=== PATIENT | male | born 1975 | race Caucasian/White ===

== ENCOUNTER 2019-10-11 21:00 | Emergency (ER) | payer SELFPAY ==
[~2019-10-11] VITALS: Ht 182.9 cm; Wt 99.7 kg
[~2019-10-11 21:00] MED LIST: DICL500C PO
[2019-10-11 21:15] VITALS: BP 147/94
[2019-10-11] MEDS ORDERED: PRED10TA22 (21:21)
[2019-10-11] MEDS ORDERED: diphenhydrAMINE 25 MG TAB (BENADRYL) PO ONE (21:30)
[2019-10-11] MEDS ORDERED: FAMOTIDINE 20 MG (PEPCID) TABLET PO ONE (21:30)
--- NOTE | 2019-10-11 21:40 | ED Integumentary General ---
General Chief Complaint: Allergic Reaction Stated Complaint: ALLERGIC REACTION Nursing Triage Note: itching/hives, feet swelling. History of Present Illness Date Seen by Provider: Oct 11, 2019 Time Seen by Provider: 21:20 Initial Comments 44 year old male presents for rash that started 2 days ago. He received a steroid shot 10/09/19 and is taking Oral Prednisone but continuing to have pruritus. No dyspnea, fever, tongue or lip swelling. He has tried Benadryl Cream with no relief. Timing/Duration: getting worse Modifying Factors: improves with scratching Associated Symptoms: change in skin texture, hives, rash Allergies and Home Medications Allergies Coded Allergies: No Known Drug Allergies (Unverified , 01/03/11) Home Medications Dicloxacillin Sodium 500 Mg Capsule, 1 EACH PO QID, (Reported) Patient Home Medication List Home Medication List Reviewed: Yes Review of Systems Review of Systems Constitutional: no symptoms reported, see HPI Skin: see HPI, rash All Other Systems Reviewed Negative Unless Noted: Yes Past [id number]-Idocbo-[id number] Hx Past Med/Social Hx: Reviewed Nursing Past Med/Soc Hx Patient Social History Alcohol Use: Occasionally Uses Recreational Drug Use: No Smoking Status: Never a Smoker Type Used: Smokeless Tobacco 2nd Hand Smoke Exposure: No Recent Foreign Travel: No Contact w/Someone Who Travel: No Recent Infectious Disease Expo: No Recent Hopitalizations: No Physical Abuse: No Sexual Abuse: No Mistreated: No Fear: No Immunizations Up To Date Tetanus Booster (TDap): Unknown Seasonal Allergies Seasonal Allergies: No Past Medical History Surgeries: Yes (INGUINAL HERNIA REPAIR, DEVIATED SEPTUM REPAIR) Appendectomy Respiratory: No Cardiac: No Neurological: No Reproductive Disorders: No Genitourinary: No Gastrointestinal: No Musculoskeletal: No Endocrine: No HEENT: No Cancer: No Psychosocial: No Integumentary: Yes Recent Skin Changes Blood Disorders: No Physical Exam Vital Signs Vital Signs - First Documented 10/11/19 21:15 Temp 36.9 Pulse 119 Resp 20 B/P (MAP) 147/94 (111) Pulse Ox 98 O2 Delivery Room Air Capillary Refill : Less Than 3 Seconds General Appearance: WD/WN, no apparent distress HEENT: PERRL/EOMI, normal ENT inspection, TMs normal, pharynx normal Neck: non-tender, full range of motion, supple Cardiovascular: normal peripheral pulses, regular rate, rhythm Respiratory: chest non-tender, lungs clear, normal breath sounds, no respiratory distress, no accessory muscle use Neurologic/Psychiatric: no motor/sensory deficits, alert, normal mood/affect, oriented x 3 Skin: rash Skin Problem Location: generalized, upper extremities, lower extremities Skin Problem Character: erythema, macules, papules Progress/Results/Core Measures Results/Orders My Orders Orders - YONG SMALLWOOD Diphenhydramine Tablet (Benadryl Tablet) (10/11/19 21:30) Famotidine Tablet (Pepcid Tablet) (10/11/19 21:30) Medications Given in ED Current Medications Medications Dose Ordered Sig/Lio Route Start Time Stop Time Status Last Admin Dose Admin Diphenhydramine HCl 50 mg ONCE ONCE PO 10/11/19 21:30 10/11/19 21:31 DC 10/11/19 21:34 50 MG Famotidine 20 mg ONCE ONCE PO 10/11/19 21:30 10/11/19 21:31 DC 10/11/19 21:34 20 MG Vital Signs/I&O 10/11/19 21:15 Temp 36.9 Pulse 119 Resp 20 B/P (MAP) 147/94 (111) Pulse Ox 98 O2 Delivery Room Air Blood Pressure Mean: 111 Departure Impression Primary Impression: Allergic reaction Qualified Codes: T78.40XA - Allergy, unspecified, initial encounter Additional Impression: Contact dermatitis Qualified Codes: L23.9 - Allergic contact dermatitis, unspecified cause Disposition: 01 HOME, SELF-CARE Condition: Improved Departure-Patient Inst. Decision time for Depature: 21:45 Referrals: NO,LOCAL PHYSICIAN (PCP/Family) Primary Care Physician Patient Instructions: Contact Dermatitis (DC), Skin Rash (DC) Add. Discharge Instructions: Continue to take the prednisone as prescribed. Take Benadryl 25-50 mg every 8 hours for itching. Take Pepcid 20 mg twice daily. Take Zyrtec 1 daily. Avoid sweating or being in hot environment. Follow up with your Primary Care Provider, if not improving or worsens. Return to ER for difficulty breathing, swelling of lips or tongue, fever greater than 101 or new, urgent health care needs. All discharge instructions reviewed with patient and/or family. Voiced understanding. YONG SMALLWOOD Oct 11, 2019 21:40
== END 2019-10-11 21:41 | disposition home or self-care (01) ==
LOC: EDUNIT# 21:00 → ER 21:02
DX: L23.9 Allergic contact dermatitis, unspecified cause (principal); T38.0X5A Adverse effect of glucocorticoids and synthetic analogues, initial encounter
CPT/HCPCS: 99283